=== PATIENT | female | born 1960 | race African-American/Black ===

== ENCOUNTER 2025-08-10 17:36 | Emergency (ER) | payer BC, MEDICAID ==
[~2025-08-10] VITALS: Ht 167.6 cm; Wt 86.0 kg
[2025-08-10 17:40] VITALS: O2SAT 97
[2025-08-10] MEDS: SODIUM CHLORIDE 0.9% 1,000 ML IV ONE (18:13)
[2025-08-10] MEDS: KETOROLAC 30MG/ML VIAL IV ONE (18:13)
[2025-08-10] MEDS: METOCLOPRAMIDE HCL 10MG/2ML VIAL IV ONE (18:13)
[2025-08-10] MEDS: PANTOPRAZOLE SODIUM 40 MG/VIAL IV ONE (18:13)
[2025-08-10 19:10] LABS: BASOPHILS % 0.3 % (0.0-2.0); EOSINOPHILS % 0.4 % (0.0-5.0); HEMATOCRIT. 43.1 % (36.0-48.0); HEMOGLOBIN. 14.1 g/dL (12.0-16.0); LYMPHOCYTES % 19.5 % (20.0-50.0); MEAN PLATELET VOLUME 9.1 fl (7.4-10.4); MONOCYTES % 3.4 % (2.0-8.0); NEUTROPHILS % 76.4 % (40.0-76.0); PLATELET 252 x1000/uL (130-400); RED BLOOD CELL COUNT 4.96 mill/uL (4.2-5.4); RED CELL DISTRIBUTION WIDTH 16.3 % (11.6-14.6)
[2025-08-10 19:21] LABS: CREATININE 1.1 mg/dL (0.6-1.0); UREA NITROGEN BLOOD 9 mg/dL (9-23)
[2025-08-10 19:22] LABS: ETHANOL BLOOD < 10 mg/dL (<10)
[2025-08-10 19:23] LABS: ASPARTATE AMINOTRANSFERASE 22 IU/L (<34); BILIRUBIN DIRECT 0.1 mg/dL (<=3.0)
[2025-08-10 19:24] LABS: BILIRUBIN TOTAL 0.5 mg/dL (0.1-1.0); PROTEIN TOTAL 8.1 g/dL (6.0-8.3)
[2025-08-10] MEDS: MAGNESIUM/ALUMINUM HYDROXIDE/SIMETHICONE 30ML UDC PO ONE (20:36)
[2025-08-10 20:40] VITALS: BP 138/80; PULSE 101; RESP 14; TEMP 36.7; O2SAT 95
[2025-08-10 20:46] LABS: CLARITY URINE CLEAR (CLEAR); GLUCOSE URINE NEGATIVE (NEGATIVE); KETONES URINE 1+ (NEGATIVE); LEUKOCYTE ESTERASE URINE NEGATIVE (NEGATIVE); NITRITE URINE NEGATIVE (NEGATIVE); OCCULT BLOOD URINE NEGATIVE (NEGATIVE); PH URINE 6.5 (4.5-8.0); PROTEIN URINE 1+ (NEGATIVE); SPECIFIC GRAVITY URINE 1.009 (1.005-1.030); UROBILINOGEN URINE 0.2 E.U./dL (0.2-1.0)
[2025-08-10] MEDS ORDERED: IBUP-2030 MT (20:51)
[2025-08-10 21:15] LABS: COLOR URINE STRAW (YELLOW)
[2025-08-10 21:18] LABS: BACTERIA URINE NONE SEEN; RBC URINE NONE SEEN /hpf (0-2); SQUAMOUS EPITHELIAL CELL URINE FEW /lpf (RARE/1+); WBC URINE 0-2 /hpf (0-2)
== END 2025-08-10 21:04 | disposition home or self-care (01) ==
LOC: ER 17:36
DX: S32.018A Other fracture of first lumbar vertebra, initial encounter for closed fracture (principal); I10 Essential (primary) hypertension; Z90.5 Acquired absence of kidney; X58.XXXA Exposure to other specified factors, initial encounter; Y93.89 Activity, other specified; Y92.89 Other specified places as the place of occurrence of the external cause; Y99.8 Other external cause status
CPT/HCPCS: 80076; 80048; 81003; 80320; 83690; 85025; 36415; 74176; 96361; 96374; 96375; 99285; J1885; J2765; J2470; J7030; G0480